=== PATIENT | male | born 1950 | race Caucasian/White ===

== ENCOUNTER 2018-06-05 10:55 | Emergency (ER) | payer OTHER ==
[~2018-06-05] VITALS: Ht 182.9 cm; Wt 94.3 kg
[2018-06-05] MEDS ORDERED: NEURONTIN300 MG ORAL (11:06)
[2018-06-05] MEDS ORDERED: ADDERAL20 MG ORAL (11:06)
[2018-06-05] MEDS ORDERED: PROZAC40 MG ORAL (11:06)
--- NOTE | 2018-06-05 11:17 | NUR ---
ED Nurse Note: Pt came in due to left lower back pain since 0200 this morning. Denies injury or trauma. Pt AAO x4, ambulatory with steady gait.
[2018-06-05] MEDS ORDERED: Ketorolac 60mg Inj IM ONE (11:30)
[2018-06-05] MEDS ORDERED: Cyclobenzaprine 10mg Tab ORAL ONE (11:45)
[2018-06-05 11:57] LABS: APPEARANCE,URINE CLEAR; BILIRUBIN, URINE NEGATIVE (NEGATIVE); GLUCOSE, URINE (UA) NEGATIVE (NEGATIVE); KETONES,URINE NEGATIVE (NEGATIVE); LEUKOCYTE ESTERASE ,URINE 1+ (NEGATIVE); NITRITE,URINE NEGATIVE (NEGATIVE); PH,URINE 7 (4.5-8.0); PROTEIN,URINE NEGATIVE (NEGATIVE); UROBILINOGEN,URINE NORMAL MG/DL (0.0-1.0)
[2018-06-05 12:00] LABS: COLOR,URINE YELLOW
--- NOTE | 2018-06-05 12:02 | NUR ---
ED Nurse Note: patient taken down for xray
--- NOTE | 2018-06-05 12:25 | NUR ---
ED Nurse Note: patient came back from Xray
--- NOTE | 2018-06-05 12:33 | Diagnostic Imaging Report ---
Indication: Back pain Comparison: None Findings: 3 views of the lumbar spine were obtained. Bones are moderately osteopenic. There is a grade 1 spondylolisthesis L5 on S1. Defect of the pars interarticularis at L5 demonstrated. Sclerosis and hypertrophy of the lumbar facets, moderate narrowing of the intervertebral discs demonstrated multiple levels. Endplate spurs are noted. No definite fracture seen. IMPRESSION: Moderate degenerative disease. L5 spondylolysis. L5 on S1 grade 1 spondylolisthesis
[2018-06-05 12:51] VITALS: BP 157/102
--- NOTE | 2018-06-05 13:52 | Emergency Room Report ---
History of Present Illness General Chief Complaint: Back Pain-No Injury Source: Patient Present Illness HPI Patient states he has a history of spondolethesis. He states that around 2 AM this morning he woke up with very localized back pain on his left side. He states the pain is severe and crampy in nature. He states it is worse with movement. He denies weakness. He denies tingling or numbness. He denies recent illness. He denies fever or chills. He denies trauma. He has no other complaints. Allergies: Coded Allergies: No Known Allergies (Unverified , 06/05/18) Patient History Past Medical History: see triage record, other - OA, spondolethesis Social History: Denies: smoking, alcohol use, drug use Reviewed Nursing Documentation: PMH: Agreed; PSxH: Agreed Nursing Documentation-PMH Past Medical History: No History, Except For Review of Systems All Other Systems: negative except mentioned in HPI Physical Exam Vital Signs Date Time Temp Pulse Resp B/P (MAP) Pulse Ox O2 Delivery O2 Flow Rate FiO2 06/05/18 11:02 98.1 77 16 157/102 93 Room Air Sp02 EP Interpretation: reviewed, normal General Appearance: no apparent distress, alert, GCS 15, non-toxic Head: normocephalic, atraumatic Eyes: bilateral eye normal inspection, bilateral eye PERRL ENT: hearing grossly normal, normal pharynx, no angioedema, normal voice Neck: full range of motion, supple/symm/no masses Respiratory: no respiratory distress, no retraction, no accessory muscle use, speaking full sentences Rectal: deferred Musculoskeletal: back normal, normal range of motion, tender - TTP localized in the mid L. paraspinal m. which causes reproduction of the pain. Neurologic: alert, oriented x3, responsive, motor strength/tone normal, sensory intact, speech normal Psychiatric: judgement/insight normal, memory normal, mood/affect normal, no suicidal/homicidal ideation Skin: normal color, no rash, warm/dry, well hydrated Medical Decision Making Diagnostic Impression: Primary Impression: Back pain Additional Impression: Muscle spasm of back ER Course This patient has a clinical presentation consistent with muscle spasm. There are no red flags on physical exam or history that would make me concerned for underlying fracture. However, I did obtain a lumbar spine x-ray given the patient's history of spondylolisthesis. This only showed grade 1 anterolisthesis and spondylolysis. The patient has pain with range of motion and has tenderness to palpation along the muscle. There is no evidence of compartment syndrome. There is no neurologic deficit. The patient was instructed on supportive home measures. No emergency medical condition was identified. The patient was given return precautions and followup instructions. Laboratory Tests Test 06/05/18 11:38 Urine Color Yellow Urine Appearance Clear Urine pH 7 (4.5-8.0) Urine Specific Sullivan 1.010 (1.005-1.035) Urine Protein Negative (NEGATIVE) Urine Glucose (UA) Negative (NEGATIVE) Urine Ketones Negative (NEGATIVE) Urine Blood Negative (NEGATIVE) Urine Nitrite Negative (NEGATIVE) Urine Bilirubin Negative (NEGATIVE) Urine Urobilinogen Normal MG/DL (0.0-1.0) Urine Leukocyte Esterase 1+ (NEGATIVE) H Urine RBC 0 /HPF (0 - 0) Urine WBC 0-2 /HPF (0 - 0) Urine Squamous Epithelial Cells Occasional /LPF Urine Bacteria Occasional /HPF (NONE) Other X-Ray Diagnostic Results Other X-Ray Diagnostic Results : X-Ray ordered: L-spine xray # of Views/Limited Vs Complete: Complete Indication: Pain EP Interpretation: No Interpretation: other - Moderate degenerative disease. Grade 1 spondollithesis Impression: Other - Last Vital Signs Date Time Temp Pulse Resp B/P (MAP) Pulse Ox O2 Delivery O2 Flow Rate FiO2 06/05/18 12:51 98.0 72 18 157/102 94 Room Air Status: improved Disposition: HOME, SELF-CARE Condition: Improved Referrals: NON PHYSICIAN (PCP) Patient Instructions: Back Pain, Adult Juana Bejarano DO Jun 05, 2018 13:52
[2018-06-05] MEDS ORDERED: IBUPROFEN600 MG ORAL (13:53)
[2018-06-05] MEDS ORDERED: TRAMADOL HCL50 MG ORAL (13:53)
[2018-06-05] MEDS ORDERED: LIDODERM700 M1 TOPIC (13:53)
[2018-06-05] MEDS ORDERED: CYCLOBENZAPRINE10 MG ORAL (13:53)
--- NOTE | 2018-06-05 14:04 | NUR ---
ED Nurse Note: pt cleared to d/c per ER provider order, pt discharge instruction provided w/prescription given. pt advised to follow up with pcp or return to ed if s/s worsen or new s/s develop, pt education done via discussion and hand out, patient verbalized understanding. ID wristband removed, pt vss, ambulatory w/ steady gait, respiration even and unlabored, airway intact, pt left with all belongings.
[2018-06-05 14:27] VITALS: BP 157/102
== END 2018-06-05 14:04 | disposition home or self-care (01) ==
LOC: EMR 11:20
DX: M54.5 Low back pain (principal); M62.830 Muscle spasm of back; M47.816 Spondylosis without myelopathy or radiculopathy, lumbar region; M43.16 Spondylolisthesis, lumbar region
CPT/HCPCS: 72110; 81003; 96372; 99283